=== PATIENT | male | born 1975 ===

== ENCOUNTER 2018-07-25 20:23 | Emergency (ER) | payer SELFPAY ==
[2018-07-25 20:54] VITALS: RESP 14
[2018-07-25] MEDS ORDERED: Tdap Vaccine 0.5 ml Vial (10-64 yrs) IM ONE ×2 (21:03→22:15)
--- NOTE | 2018-07-25 21:05 | ED PDOC ---
Upper Extremity Pain/Injury Time Seen by Provider: 07/25/18 20:54 Chief Complaint (Nursing): Finger,Hand,&Wrist Chief Complaint (Provider): Finger,Hand,&Wrist History Per: Patient History/Exam Limitations: no limitations Onset/Duration Of Symptoms: Mins (x30 ) Current Symptoms Are (Timing): Still Present Additional Complaint(s): 42 year old male with no significant past medical history presents to the ED with left wrist laceration sustained 30 minutes ago. Patient reports he was working on his car when he cut his left wrist, cleaned it with rubbing alcohol and put antibiotic ointment. Patient denies any pain or any other injuries. He is right hand dominant. Tetanus is not up to date. PMD: none provided Past Medical History Reviewed: Historical Data, Nursing Documentation, Vital Signs Vital Signs: Last Vital Signs Temp 98.3 F 07/25/18 20:50 Pulse 74 07/25/18 20:50 Resp 14 07/25/18 20:50 BP 121/79 07/25/18 20:50 Pulse Ox 98 07/25/18 20:50 - Medical History PMH: No Chronic Diseases - Surgical History Surgical History: No Surg Hx - Family History Family History: States: Unknown Family Hx - Social History Current smoker - smoking cessation education provided: No Ex-Smoker (has not smoked in the last 12 months): No Alcohol: Occasional Drugs: Denies - Immunization History Hx Tetanus Toxoid Vaccination: No - Allergies Allergies/Adverse Reactions: Allergies Allergy/AdvReac Type Severity Reaction Status Date / Time No Known Allergies Allergy Verified 07/25/18 20:50 Review of Systems ROS Statement: Except As Marked, All Systems Reviewed And Found Negative Skin: Positive for: Other (left wrist laceration ) Physical Exam - Reviewed Nursing Documentation Reviewed: Yes Vital Signs Reviewed: Yes - Physical Exam Comments: GENERAL APPEARANCE: Patient is awake, alert, oriented x 3, in no acute distress. Resting comfortably. SKIN: Warm, dry; (-) cyanosis. CHEST AND RESPIRATORY: (-) rales, (-) rhonchi, (-) wheezes; breath sounds equal bilaterally. NECK: Supple, FROM HEART AND CARDIOVASCULAR: (-) irregularity RIGHT HAND: To the ulnar aspect of the ventral left wrist patient has a 1.5 cm superficial linear laceration with no active bleeding (-) warmth, (-) edema, (-) ecchymosis, (-) erythema. Full ROM of wrist and hand (-) tenderness. Sensation intact throughout. (+) pulses. Remainder of upper extremity: (-) tenderness. NEURO AND PSYCH: Mental status as above. Gait: steady. Speech: clear. (-) facial asymmetry - ECG O2 Sat by Pulse Oximetry: 98 (RA) Pulse Ox Interpretation: Normal Medical Decision Making Medical Decision Making: Time: 2099 Clinical Impression: Wrist laceration Initial Plan: --Dermabond --Tetanus IM 2130 Wound repair performed with Dermabond by Giovani DEL ANGEL. Patient tolerated procedure well. Educated on adhesive wound care. Lab/Diagnostic results d/w the patient in great detail. Diagnosis of wrist la ceration d/w the patient. Based on history, exam and diagnostic results, plan will be for outpatient follow up. Patient instructed to follow-up with pmd / referral provided / the clinic in 1- 2 days without fail. Return to the emergency room at any time for any new or worsening symptoms. Patient states he fully agrees with and understands discharge instructions. States that he agrees with the plan and disposition. Verbalized and repeated discharge instructions and plan. I have given the patient opportunity to ask any additional questions. Scribe Attestation: Documented by Rose Rivera, acting as a scribe for Tierra Matute PA-C. Provider Scribe Attestation: All medical record entries made by the Scribe were at my direction and personally dictated by me. I have reviewed the chart and agree that the record accurately reflects my personal performance of the history, physical exam, medi valeria decision making, and the department course for this patient. I have also personally directed, reviewed, and agree with the discharge instructions and disposition. Disposition - Clinical Impression Clinical Impression: Wrist laceration - Patient ED Disposition Is Patient to be Admitted: No Counseled Patient/Family Regarding: Studies Performed, Diagnosis, Need For Followup - Disposition Referrals: [facility] [Outside] Disposition: Routine/Home Disposition Time: 22:35 Condition: STABLE Additional Instructions: The emergency medical care you received today was directed at your acute symptoms. If you were prescribed any medication, please fill it and take as directed. It may take several days for your symptoms to resolve. Return to the Emergency Department if your symptoms worsen, do not improve, or if you have any other problems. Please contact your doctor in 2 days for re-evaluation and follow up / or call one of the physicians/clinics you have been referred to that are listed on the Patient Visit Information form that is included in your discharge packet. Bring any paperwork you were given at discharge with you along with any medications you are taking to your follow up visit. Our treatment cannot replace ongoing medical care by a primary care provider (PCP) outside of the emergency depar tment. Instructions: Laceration Repair With Glue (DC), Wound Care Forms: [employer] Connect (Portuguese) Print Language: [place] - POA Present On Arrival: None
[2018-07-25 22:49] VITALS: BP 122/80; PULSE 82; TEMP 98
[2018-07-26 16:18] VITALS: O2SAT 98
== END 2018-07-25 22:48 | disposition home or self-care (01) ==
LOC: H.ER 20:23
DX: S61.512A Laceration without foreign body of left wrist, initial encounter (principal); W26.8XXA Contact with other sharp object(s), not elsewhere classified, initial encounter; Y92.89 Other specified places as the place of occurrence of the external cause